=== PATIENT | male | born 1990 | race Caucasian/White ===

== ENCOUNTER 2017-06-12 22:24 | Emergency (ER) | payer OTHER ==
[~2017-06-12] VITALS: Ht 167.6 cm; Wt 84.8 kg
[2017-06-12] MEDS ORDERED: MOTRIN800 MG PO (23:36)
[2017-06-12] MEDS ORDERED: ZITHROMAX Z-PA250 MG PO (23:36)
[2017-06-12 23:52] VITALS: BP 143/82
== END 2017-06-12 23:59 | disposition home or self-care (01) ==
LOC: EME 22:24 → RME 22:24
DX: H66.93 Otitis media, unspecified, bilateral (principal); Z88.0 Allergy status to penicillin; F17.200 Nicotine dependence, unspecified, uncomplicated
CPT/HCPCS: 99281; 99284

== ENCOUNTER 2018-02-06 15:36 | Observation (INO) | payer OTHER ==
[~2018-02-06] VITALS: Ht 170.2 cm; Wt 83.7 kg
[~2018-02-06 15:36] MED LIST: MOTRIN800 MG PO; ZITHROMAX Z-PA250 MG PO
[2018-02-06 18:58] LABS: SOURCE URINE
[2018-02-06 19:23] LABS: APPEARANCE CLEAR ((CLEAR)); BILIRUBIN NEGATIVE; BLOOD SMALL; COLOR AMBER ((YELLOW)); GLUCOSE (STRIP) NEGATIVE; KETONES 80; LEUKOCYTES NEGATIVE; NITRITE NEGATIVE; PROTEIN (STRIP) 100; SPECIFIC GRAVITY 1.033 (1.000-1.030); UROBILINOGEN 0.2 MG/DL (0.2-1.0)
[2018-02-06 19:52] LABS: BASOPHIL (%) 0.3 % (0-1); BASOPHIL COUNT 0.1 K/uL (0-0.1); EOSINOPHIL (%) 0 % (0-5); HEMATOCRIT 44.6 % (38.0-50.0); HEMOGLOBIN 15.3 G/DL (12.5-16.6); IMMATURE GRANULOCYTE (%) 0.6 % (0.0-0.7); LYMPHOCYTE (%) 5.4 % (15-42); LYMPHOCYTE COUNT 1.2 K/uL (1.0-2.8); MCH 31.2 PG (29.0-34.0); MCHC 34.3 G/DL (30.0-36.0); MONOCYTE (%) 6.9 % (3-12); MONOCYTE COUNT 1.5 K/uL (0-0.8); NEUTROPHIL (%) 86.8 % (45-76); PLATELET COUNT 311 K/uL (156-360); RBC DIS.WIDTH-CV 12.9 % (11.8-14.6); RBC DIS.WIDTH-SD 42.9 % (39-53); WHITE BLOOD COUNT 21.9 K/uL (4.1-10.2)
[2018-02-06 20:07] LABS: ALBUMIN 4.6 g/dL (3.2-4.8); CHLORIDE 108 mEq/L (99-109); POTASSIUM 3.9 mEq/L (3.7-5.4); SODIUM 141 mEq/L (136-147)
[2018-02-06 20:09] LABS: GLUCOSE 113 mg/dL (70-99); TOTAL PROTEIN 7.3 g/dL (6.4-8.3)
[2018-02-06 20:11] LABS: TOTAL BILIRUBIN 1.1 mg/dL (0.0-1.0)
[2018-02-06 20:13] LABS: ALKALINE PHOSPHATASE 97 IU/L (3-129); CREATININE 1.2 mg/dL (0.6-1.3); GFR ESTIMATE (CALCULATED) > 59 mL/min/ (58.99-99999)
[2018-02-06 20:14] LABS: BACTERIA 1+ /HPF; EPITHELIAL CELLS 2+ /HPF; MUCUS 4+ /LPF; RED BLOOD CELLS 0-5 /HPF (0-5); WHITE BLOOD CELLS 0-5 /HPF (0-5)
[2018-02-06 20:14] LABS: UREA NITROGEN (BUN) 11 mg/dL (9-23)
[2018-02-06 20:15] LABS: AST (GOT) 16 IU/L (2-34); DIRECT BILIRUBIN 0.4 mg/dL (0.0-0.3)
[2018-02-06 20:16] LABS: ALT (GPT) 14 IU/L (3-49); LIPASE 5 U/L (1.0-51.0)
[2018-02-06] MEDS ORDERED: IBUPROFEN800 MG PO (22:33)
[2018-02-07 02:10] VITALS: BP 126/76
[2018-02-07 06:50] VITALS: BP 132/64
[2018-02-07 07:24] LABS: BASOPHIL (%) 0.2 % (0-1); EOSINOPHIL (%) 0.3 % (0-5); EOSINOPHIL COUNT 0.1 K/uL (0-0.3); HEMATOCRIT 42.4 % (38.0-50.0); HEMOGLOBIN 14.2 G/DL (12.5-16.6); IMMATURE GRANULOCYTE (%) 0.4 % (0.0-0.7); LYMPHOCYTE (%) 16.8 % (15-42); LYMPHOCYTE COUNT 2.9 K/uL (1.0-2.8); MCH 30.8 PG (29.0-34.0); MCHC 33.5 G/DL (30.0-36.0); MONOCYTE (%) 10.6 % (3-12); MONOCYTE COUNT 1.8 K/uL (0-0.8); NEUTROPHIL (%) 71.7 % (45-76); NEUTROPHIL COUNT 12.3 K/uL (1.8-6.4); PLATELET COUNT 283 K/uL (156-360); RBC DIS.WIDTH-CV 13.2 % (11.8-14.6); RBC DIS.WIDTH-SD 43.8 % (39-53); RED BLOOD COUNT 4.61 M/uL (4.00-5.50); WHITE BLOOD COUNT 17.1 K/uL (4.1-10.2)
[2018-02-07 07:39] LABS: CHLORIDE 107 MEQ/L (99-109); CREATININE 1.1 MG/DL (0.6-1.3); GFR ESTIMATE (CALCULATED) > 59 mL/min/ (58.99-99999); GLUCOSE 100 mg/dL (70-99); POTASSIUM 3.9 MEQ/L (3.7-5.4); SODIUM 140 MEQ/L (136-147); UREA NITROGEN (BUN) 12 mg/dL (9-23)
[2018-02-07] MEDS ORDERED: CIPROFLOXACIN500 M1 PO (11:30)
[2018-02-08 15:18] LABS: CHLAMYDIA TRACHOMATIS NEGATIVE; NEISSERIA GONORRHOEAE NEGATIVE
== END 2018-02-07 13:27 | disposition home or self-care (01) ==
LOC: EME 15:36 → ENPENDDIS 02-07 → 5EAST 02-07 00:31 → EDOF 02-07 00:31 → 5EAST 02-07 00:31 → ENRESERV 02-07 00:44 → CANRESERV 02-07 00:44 → ENRESERV 02-07 01:00 → 5EAST 02-07 01:57
PROVIDERS: Hospitalist; Physician Assistant
DX: N13.2 Hydronephrosis with renal and ureteral calculous obstruction (principal); N23 Unspecified renal colic; Z87.442 Personal history of urinary calculi; F17.200 Nicotine dependence, unspecified, uncomplicated; F12.90 Cannabis use, unspecified, uncomplicated; Z88.0 Allergy status to penicillin
CPT/HCPCS: 74176; 76870; 80048; 80076; 81003; 82948; 83605; 83690; 85025; 87040; 87491; 87591; 99281; 99285; G0378; J0696; J1170; J1650; J1885; J1956; J2405; J7030